=== PATIENT | female | born 1960 ===

== ENCOUNTER 2023-09-05 13:58 | Outpatient (REF) | payer MEDICAID, SELFPAY ==
[2023-09-05 15:01] LABS: Hemoglobin A1C 5.4 % (<5.7)
[2023-09-05 16:05] LABS: ALT 30 U/L (14-59); AST 21 U/L (15-37); Albumin 3.9 g/dL (3.4-5.0); Alkaline Phosphatase 64 U/L (46-116); Anion Gap 8.3 mmol/L (3-11); BUN 20 mg/dL (7-18); Bilirubin, Total 0.9 mg/dL (0.2-1.0); CO2 28.7 mmol/L (21.0-32.0); CREATININE 0.8 mg/dL (0.55-1.02); Calcium 10.5 mg/dL (8.5-10.1); Calculated LDL 153 mg/dL (<100); Chloride 104 mmol/L (98-107); Cholesterol 255 mg/dL (<200); Estimated GFR 83.26 (mL/min/1.73m2); Glucose 111 mg/dL (74-106); HDL Cholesterol 46 mg/dL (40-60); Potassium 3.6 mmol/L (3.5-5.1); Sodium 141 mmol/L (136-145); Total Protein 7.9 g/dL (6.4-8.2); Triglyceride 281 mg/dL (<150)
== END 2023-09-05 13:59 | disposition home or self-care (01) ==
LOC: NCHCN 13:58
PROVIDERS: Referring Provider Family Medicine; Visit Provider Family Medicine
DX: I10 Essential (primary) hypertension (principal); R73.9 Hyperglycemia, unspecified; E66.8 Other obesity
CPT/HCPCS: 80053; 80061; 83036

== ENCOUNTER 2024-11-02 17:26 | Outpatient (REF) | payer SELFPAY ==
[2024-11-03 07:53] LABS: ALT 31 U/L (14-59); AST 17 U/L (15-37); Albumin 4.1 g/dL (3.4-5.0); Alkaline Phosphatase 74 U/L (46-116); Anion Gap 11.8 mmol/L (3-11); BUN 23 mg/dL (7-18); Bilirubin, Total 0.8 mg/dL (0.2-1.0); CO2 27.2 mmol/L (21.0-32.0); Calcium 10.3 mg/dL (8.5-10.1); Calculated LDL 170 mg/dL (<100); Chloride 104 mmol/L (98-107); Cholesterol 257 mg/dL (<200); Glucose 88 mg/dL (74-106); HDL Cholesterol 41 mg/dL (>or=50); Potassium 3.6 mmol/L (3.5-5.1); Sodium 143 mmol/L (136-145); Total Protein 7.4 g/dL (6.4-8.2); Triglyceride 232 mg/dL (<150)
[2024-11-04 09:37] LABS: Hepatitis C Ab w Rflx HCV PCR Negative (Negative)
[2024-11-04 10:10] LABS: HIV-1/2 Ag & Ab Screen Negative (Negative)
== END 2024-11-02 17:27 | disposition home or self-care (01) ==
LOC: NCHCN 17:26
PROVIDERS: Visit Provider Family Medicine
DX: Z11.59 Encounter for screening for other viral diseases (principal); Z11.4 Encounter for screening for human immunodeficiency virus [HIV]; I10 Essential (primary) hypertension; E78.5 Hyperlipidemia, unspecified
CPT/HCPCS: 80053; 80061; 86803; 87389